=== PATIENT | female | born 1980 | race Caucasian/White ===

== ENCOUNTER 2016-11-12 07:55 | Outpatient (CLI) | payer BC ==
[2016-12-14] MEDS ORDERED: COLACE-DPS100 MG PO (16:32)
[2016-12-14] MEDS ORDERED: PRENATAL VIT1 TAB PO (16:32)
[2016-12-14] MEDS ORDERED: MOTRIN-DPS800 MG PO (16:32)
[2016-12-14] MEDS ORDERED: PERCOCET 5 DPS1 TAB PO (16:32)
[2016-12-14] MEDS ORDERED: NIPPLECREAM TP (16:33)
== END 2016-11-12 09:28 | disposition home or self-care (01) ==
LOC: WOR 07:55 → 2LDRP 07:55 → BC 07:55 → 2LDRP 09:28 → WOR 11-18 09:28 → BC 11-18 09:28
DX: O46.93 Antepartum hemorrhage, unspecified, third trimester (principal); Z3A.35 35 weeks gestation of pregnancy

== ENCOUNTER 2016-12-11 06:44 | Inpatient (IN) | payer BC ==
[~2016-12-11] VITALS: Ht 162.6 cm; Wt 83.5 kg
[2016-12-14] MEDS ORDERED: MOTRIN-DPS800 MG PO (16:32)
[2016-12-14] MEDS ORDERED: PERCOCET 5 DPS1 TAB PO (16:32)
[2016-12-14] MEDS ORDERED: PRENATAL VIT1 TAB PO (16:32)
[2016-12-14] MEDS ORDERED: COLACE-DPS100 MG PO (16:32)
[2016-12-14] MEDS ORDERED: NIPPLECREAM TP (16:33)
--- NOTE | 2017-01-12 08:25 | OR ---
ADMIT: 12/11/2016 RM/LOC: 224 [facility] MR#: [id number] [address] [place] [address] Operative/Delivery Room Report SEX: F AGE: 36 : 1980 SURGERY DATE: 12/11/2016 SURGEON: Moe Espinoza MD [employer] [employer] OPERATOR: Agueda Argueta MD Resident PREOPERATIVE DIAGNOSES: 1. Term intrauterine . 2. History of previous section. POSTOPERATIVE DIAGNOSES: 1. Term intrauterine . 2. History of previous section. PROCEDURE: Repeat low transverse section. INDICATION: The patient is a 36-year-old, 2, para 1-0-0-1, who presents at 39-1/7th weeks' gestation for elective repeat low transverse cesarian section. FINDINGS: Viable female , 6 pounds 4 ounces with scores of 9 at 1 minute and 9 at 5 minutes, with spontaneous cry and movement of all four extremities. ANESTHESIA: Spinal. ESTIMATED BLOOD LOSS: 200 mL. COMPLICATIONS: None. DESCRIPTION OF PROCEDURE: The patient was taken to the operating room and was prepped and draped in the usual fashion in dorsal supine position with a leftward tilt. A pfannensteil skin incision was made with a scalpel and carried through sharply to the underlying layer of fascia. Rose clamps were used to elevate the superior aspect of the fascial incision and the underlying rectus muscles were dissected off with a combination of blunt dissection and electrocautery. Attention was then turned to the inferior aspect of the fascial incision, which was grasped in a similiar fashion, elevated, and the underlying rectus muscles were dissected off. The rectus muscles were in the midline. The parietal peritoneum was identified, entered sharply with Mills scissors. This incision was then extended superiorly and inferiorly with good visualization of the bladder. The bladder flap was created with a combination of sharp and blunt dissection, and bladder blade was inserted. The lower uterine segment was incised in a transverse fashion and the uterine incision was extended laterally with digital dissection. The infant was delivered in the vertex position with no nuchal cord noted. Delayed cord clamping was allowed and the cord was clamped x2,cut, and the infant was handed off to awaiting nursing staff. Placenta was ADMIT: 12/11/2016 RM/LOC: 224 [facility] MR#: [id number] [address] [place] [address] [place] [address] Operative/Delivery Room Report SEX: F AGE: 36 : 1980 delivered and was noted to be intact with normal appearance. Uterus was exteriorized and cleared of all clot and debris. The endometrial cavity was swept with a laparotomy sponge to remove any remaining products of conception. She had excellent hemostasis. The paracolic gutters were cleared of all clots and debris. Hysterotomy was inspected and noted to be hemostatic. The subfascial compartments were then inspected and also noted to be hemostatic. The fascia was reapproximated using a running length of 0 Vicryl. Subcutaneous tissues were inspected and noted be hemostatic, and reapproximated with interrupted sutures of 3-0 plain gut. and the skin was closed with Insorb subcuticular jane. The patient tolerated the procedure well, was taken to the recovery room in stable condition. All sponge, instrument, and needle counts were correct. Agueda Argueta MD Resident / Moe Espinoza MD / jenny JOB #: [id number] CC: Moe J Alexis, Attending Physician NO FAMILY PHYSICIAN, Family Physician
--- NOTE | 2017-01-12 08:25 | HP ---
ADMIT: 12/17/2016 RM/LOC: [facility] MR#: [id number] [address] [place] [address] Pre-OP History and Physical SEX: F AGE: 36 : 1980 DATE OF SERVICE: PRINCIPAL DIAGNOSES: 1. Term intrauterine . 2. History of previous section. HISTORY OF PRESENT ILLNESS: The patient is a 36-year-old, white female, 2, para 1, who presents at 39 weeks' estimated gestational age for elective repeat low transverse section. We discussed management options. She declined a trial of labor after . PREVIOUS MEDICAL HISTORY: She denies any significant previous medical history. SOCIAL HISTORY: She does not smoke, drink, or use drugs. ALLERGIES: SHE HAS NO KNOWN MEDICAL ALLERGIES. FAMILY HISTORY: Significant for hypertension and diabetes. PHYSICAL EXAMINATION: GENERAL: The patient is a well-developed, well- nourished, thin, white female. Alert and oriented, in no apparent distress with normal stream of thought and content of speech. HEART: Regular rate and rhythm without murmurs, rubs, or gallops. LUNGS: Clear to auscultation bilaterally. ABDOMEN: Soft with positive bowel sounds. Gravid. heart tones in the 150s. ASSESSMENT: Term intrauterine with history of previous section. We reviewed management options and the patient opts for repeat low transverse section. We discussed risks involved with surgery including risks of infection, risk of bleeding with possible need for blood transfusion, and the attendant infectious risks inherent in blood transfusion. We also discussed risk of damage to other organs including, but not limited to, bowel, bladder, major blood vessels, and ureters with possible need for additional surgery and repair should such damage occur. The patient voiced understanding of the risks, benefits, and alternatives to the proposed procedure and desires to proceed with repeat low-transverse section. Moe Espinoza MD/ jenny JOB #: [id number] CC: Moe Espinoza, Attending Physician FAMILY PHYSICIAN, Family Physician
--- NOTE | 2017-02-02 09:38 | DS ---
ADMIT: 12/11/2016 RM/LOC: 224 [facility] MR#: [id number] [address] [place] [address] General Discharge Summary SEX: F AGE: 36 : 1980 ADMISSION DATE: 12/11/2016 DISCHARGE DATE: 12/13/2016 PRINCIPAL DIAGNOSES: 1. Term intrauterine . 2. History of previous section. REASON FOR HOSPITALIZATION: The patient is a 36-year-old, white female, 2, para 1, who presented at 39 weeks' estimated gestational age for elective repeat low transverse section OPERATIVE PROCEDURE: The patient underwent a repeat low transverse section on 12/11/2016. HOSPITAL COURSE: The patient was admitted, underwent an uncomplicated repeat low transverse section. She did well through the initial operative day. By the morning of postoperative day #1, she was doing well, tolerating a regular diet, experiencing good pain control with oral pain medications, ambulating without difficulty, and using the bathroom without any problems. Postoperative hemoglobin was 11.3, down from a preoperative hemoglobin of 11.8. We continued to monitor the patient through the course of postoperative day #1. By the morning of postoperative day #2, she was tolerating a regular diet, experiencing good pain control with oral pain medications, ambulating without difficulty, using the bathroom without any problems and experiencing return of bowel function. DISCHARGE MEDICATIONS: She was dismissed to home on postoperative day #2, on the following medications; 1. Motrin 800 mg one tab p.o. q.8 hours p.r.n. 2. Percocet 5 mg one to two tabs p.o. q.4 to 6 hours p.r.n. DISCHARGE INSTRUCTIONS: She was instructed to follow up in the clinic again in 2 weeks' time for an incision check and again in 6 weeks' time, sooner as needed for any problems. Moe Espinoza MD/ jenny JOB #: [id number] CC: Moe Espinoza MD, Attending Physician FAMILY PHYSICIAN, Family Physician
== END 2016-12-13 12:40 | disposition home or self-care (01) | DRG 766 ==
LOC: 2LDRP 06:44 → BC 06:44 → 2LDRP 06:54 → BC 12-17 08:00
PROVIDERS: ADMIT Obstetrics & Gynecology
PROC: 10D00Z1 Extraction of Products of Conception, Low, Open Approach (ICD-10-PCS; principal; 2016-12-11)
DX: O34.211 Maternal care for low transverse scar from previous cesarean delivery (principal); Z37.0 Single live birth; Z3A.39 39 weeks gestation of pregnancy